=== PATIENT | female | born 1945 | race Caucasian/White ===

== ENCOUNTER → 2017-01-31 | Outpatient (CLI) | payer OTHER ==
[~2017-01-31] MED LIST: NAPR250T2 PO; TRAM-10 PO; VALA500T60 PO
[2017-01-31 12:54] LABS: BLOOD UREA NITROGEN 13 mg/dl (7-18); BUN/CREATININE RATIO 12.9 (10-20); CALCIUM 9.5 mg/dl (8.5-10.1); CARBON DIOXIDE 26 mmol/L (21-32); CHLORIDE 106 mmol/L (98-107); CHOLESTEROL 259 mg/dl (0-200); GLUCOSE 100 mg/dl (70-99); POTASSIUM 4.1 mmol/L (3.5-5.1); SODIUM 141 mmol/L (136-145)
[2017-01-31 12:58] LABS: CHOLESTEROL/HDL RATIO 6.6; HDL CHOLESTEROL 39 mg/dl; LDL CHOLESTEROL CALCULATED 170 mg/dl; TRIGLYCERIDES 252 mg/dl (0-150); VERY LOW DENSITY LIPOPROT CALC 50 mg/dl
== END | disposition home or self-care (01) ==
LOC: C.LAB1850 09:35
PROVIDERS: ATTEND Internal Medicine
DX: E78.5 Hyperlipidemia, unspecified (principal); R73.9 Hyperglycemia, unspecified

== ENCOUNTER → 2017-05-16 | Outpatient (CLI) | payer OTHER ==
[~2017-05-16] MED LIST changes: +NAPR1TAB48 PO; -NAPR250T2 PO
--- NOTE | 2017-05-16 15:57 | DIAGNOSTIC IMAGING REPORT ---
ULTRASOUND OF THE APPENDIX CLINICAL HISTORY: Left lower quadrant abdominal pain. COMPARISON STUDY: No priors. FINDINGS: Real-time, grayscale, and color flow sonography of the right lower quadrant was performed to assess for acute appendicitis. The appendix was not discretely visualized. No inflammatory changes or free fluid are seen in the right lower quadrant. No lymphadenopathy was seen. IMPRESSION: Nonvisualization of the appendix. Note that this does not exclude acute appendicitis. Electronically signed by: Markus Campbell M.D. 05/16/2017 3:56 PM Dictated Date/Time: 05/16/2017 3:55 PM
== END | disposition home or self-care (01) ==
LOC: C.ULTR 15:28
PROVIDERS: ATTEND Physician Assistant
DX: R10.813 Right lower quadrant abdominal tenderness (principal)

== ENCOUNTER → 2017-08-18 | Outpatient (CLI) | payer OTHER | END | disposition home or self-care (01) | LOC: C.MAMM 14:31 | PROVIDERS: ATTEND Internal Medicine | DX: M85.80 Other specified disorders of bone density and structure, unspecified site (principal); M18.9 Osteoarthritis of first carpometacarpal joint, unspecified; Z78.0 Asymptomatic menopausal state ==

== ENCOUNTER 2023-02-21 09:24 | Observation (INO) ==
--- NOTE | 2023-01-28 10:57 | PAT Medication Instructions ---
Medication Instructions Date of Service January 28, 2023 Home Medications Medication Instructions Recorded valacyclovir 500 mg tablet 500 mg PO QAM #90 tabs 08/26/22 cholecalciferol (vitamin D3) 1,250 50,000 unit PO .qweekly #14 tabs 12/18/22 mcg (50,000 unit) tablet rimegepant 75 mg disintegrating 75 mg PO ONCE PRN migraine 12/18/22 tablet (Nurtec ODT) headache #8 tabs topiramate 25 mg tablet (Topamax) 25 mg PO DAILY #30 tabs 12/18/22 melatonin 10 mg capsule 10 mg PO HS PRN diazepam 5 mg tablet 5 mg PO BID PRN valacyclovir 500 mg tablet 500 mg PO QAM lamotrigine 25 mg tablet (Lamictal) 100 mg PO QAM [id number] [Macular Health Formula] 1 tab PO QAM diclofenac sodium 1 % topical gel 2 g topical UD PRN meloxicam 15 mg tablet 15 mg PO QAM rosuvastatin 5 mg tablet (Crestor) 5 mg PO QAM sertraline 50 mg tablet (Zoloft) 50 mg PO QAM acetaminophen 325 mg capsule (Tylenol) 325 mg PO QID PRN cholecalciferol (vitamin D3) 1,250 mcg (50,000 unit) tablet 50,000 unit PO .qweekly rimegepant 75 mg disintegrating tablet (Nurtec ODT) 75 mg PO ONCE PRN topiramate 25 mg tablet (Topamax) 25 mg PO DAILY Continue as directed topiramate 25 mg tablet (Topamax) 25 mg PO DAILY rimegepant 75 mg disintegrating tablet (Nurtec ODT) 75 mg PO ONCE PRN(if needed) ASK your surgeon for instructions diclofenac sodium 1 % topical gel 2 g topical UD PRN meloxicam 15 mg tablet 15 mg PO QAM STOP taking 2 weeks before surgery (or as soon as possible if surgery is within 2 weeks) [id number] [Macular Health Formula] 1 tab PO QAM DO NOT take the morning of surgery cholecalciferol (vitamin D3) 1,250 mcg (50,000 unit) tablet 50,000 unit PO .qweekly Take morning of surgery With a small sip of water, OTHERWISE NOTHING TO EAT OR DRINK AFTER MIDNIGHT: diazepam 5 mg tablet 5 mg PO BID PRN(if needed) valacyclovir 500 mg tablet 500 mg PO QAM lamotrigine 25 mg tablet (Lamictal) 100 mg PO QAM rosuvastatin 5 mg tablet (Crestor) 5 mg PO QAM sertraline 50 mg tablet (Zoloft) 50 mg PO QAM acetaminophen 325 mg capsule (Tylenol) 325 mg PO QID PRN(if needed) Take evening before surgery melatonin 10 mg capsule 10 mg PO HS PRN(if needed) diazepam 5 mg tablet 5 mg PO BID PRN(if needed) acetaminophen 325 mg capsule (Tylenol) 325 mg PO QID PRN(if needed) Other Notes If you have any questions please call us at [phone] or [phone] or [phone] or [phone]
--- NOTE | 2023-02-04 11:34 | Anesthesiology Consultation ---
Date of Service February 04, 2023 Assessment & Plan (1) Encounter for pre-operative examination: - COVID screening: Per assessment on 02/04: No known COVID-19 positive contacts or current COVID-19 related symptoms. No recent Covid positive test result. - Outpatient joint assessment: Pt currently scheduled for inpatient pathway. If surgeon requests review for outpatient joint pathway, patient is not recommended candidate for outpatient joint program from anesthesia standpoint. - Cardiology visit (09/30/22): "Mild sinus tachycardia documented on electrocardiograms over the past few years. The patient states that she is in chronic pain from her headache. She also has chronic right shoulder and bilateral knee pain. She has anxiety. All of these would contribute to an increase in her sinus rate. She appears euvolemic on exam. Normal oral intake. No symptoms of GI fluid losses. No bleeding complaints. Recent renal functions and CBC normal. She is afebrile. Thyroid functions are normal. She has normal left ventricular systolic function on echo. Thus, suspect that her sinus tachycardia is a result of her chronic pain as well as anxiety. Do not suspect a primary cardiac etiology to her tachycardia. She has no anginal or anginal equivalent type symptoms. No signs or symptoms of heart failure.. Markedly elevated direct LDL on most recent testing. She has since been started on low-dose rosuvastatin.. Mitral regurgitation. Most recent can not echo showed only mild mitral regurgitation. She has normal LV size and systolic function. No signs or symptoms referable to valvular heart disease. Plan and recommendation : 1. Optimal pain control . 2. No specific treatment for her sinus tachycardia. She did not tolerate low-dose beta-donnie therapy. Stay well hydrated. Avoid excessive caffeine intake. 3. No further cardiac testing at this time. 4. Echocardiogram every few years. This is in light of her valvular regurgitation. 5. If LDL remains elevated on low-dose resume his statin increased dose as tolerated. Would aim for an LDL level of 70 or less. 6. As needed cardiology follow-up. 7. Continue follow-up in primary care clinic." - S/P Colonoscopy (10/22/22): [facility] at [facility] - Neurology visit (12/18/22): "77-year-old female with a remote history of what sounds like significant TBI complicated by skull fracture and subdural hematoma, did not require specific neurosurgical treatment, however. More recent, minor concussion noted. Has been dealing with what sounds like significant postconcussive symptomatology, primarily headaches.She gets approximately 6 migraine like headaches per month. She gets sensitive to light and noise. Headaches are stabbing, frontal to posterior, around head, worse with stress, worse with activity, stairs, gets some nausea.. Current treatment: Abortive : taking Valium to fall asleep when she gets headache, prior was taking Percocet..Can not take triptans sec to imaging evidence of stoke on recent MRI.. Preventive: on Lamictal. Can not take B-Blockers sec to occasional low BP..Brain MRI 05/17/22: reveals chronic cerebrovascular disease, and perhaps a chronic lacunar infarct within the right cerebral hemisphere, subcortical region." - Hx of neuraxial complication: Per patient, had "convulsions" with neuraxial anesthesia used prior to c/s in the 1970s. Does not believe term "seizures" was used. She does not have further details regarding this. She states that they did use some form of neuraxial anesthesia with her hysterectomy in the without issue. Discussed SAB vs GA. Advised that ultimate anesthetic type to be determined after anesthesiologist/patient/surgeon discussion DOS. Chart Review Chart Review: Acceptable Risk for Surgery and Patient seen in Pre Admission Testing Teaching & Discussion Pre-Anesthesia Teaching/Discussion Notes: Instructed NPO after midnight before surgery,except medications with 15 cc of water. Medication instructions provided according to the PAT guidelines. History Surgery Operation Date: 03/14/23 08:10 Proposed Procedures p Right Total Knee Arthroplasty - James Zee, Height/Weight Height: 5 ft 3 in Weight: 70.6 kg Allergies Allergy/AdvReac Type Severity Reaction Status Date / Time poison rosenda extract Allergy Unknown Rash Verified 01/28/23 10:26 poison oak extract Allergy Unknown Rash Verified 01/28/23 10:26 metoprolol AdvReac Unknown Depression, Verified 01/29/23 09:55 dizziness, nausea JEWELRY AdvReac Unknown Rash Uncoded 01/29/23 09:55 (wrist watch), unknown type of metal Medications Home Medications Medication Instructions Recorded Confirmed Last Taken melatonin 10 mg capsule 10 mg PO HS PRN Sleep 05/22/21 01/28/23 10/21/22 diazepam 5 mg tablet 5 mg PO BID PRN HEADACHES 02/20/22 01/28/23 10/21/22 valacyclovir 500 mg tablet 500 mg PO QAM #90 tabs 08/26/22 01/28/23 10/21/22 lamotrigine 25 mg tablet (Lamictal) 100 mg PO QAM 09/30/22 01/28/23 10/21/22 [id number] 1 tab PO QAM 09/30/22 01/28/23 10/21/22 [Macular Health Formula] diclofenac sodium 1 % topical gel 2 g topical UD PRN Pain 10/16/22 01/28/23 Unknown meloxicam 15 mg tablet 15 mg PO QAM 10/16/22 01/28/23 10/21/22 rosuvastatin 5 mg tablet (Crestor) 5 mg PO QAM 10/16/22 01/28/23 10/21/22 sertraline 50 mg tablet (Zoloft) 50 mg PO QAM 10/16/22 01/28/23 10/21/22 acetaminophen 325 mg capsule 325 mg PO QID PRN Pain 12/18/22 01/28/23 Unknown (Tylenol) cholecalciferol (vitamin D3) 1,250 50,000 unit PO .qweekly #14 tabs 12/18/22 01/28/23 Unknown mcg (50,000 unit) tablet rimegepant 75 mg disintegrating 75 mg PO ONCE PRN migraine 12/18/22 01/28/23 Unknown tablet (Nurtec ODT) headache #8 tabs topiramate 25 mg tablet (Topamax) 25 mg PO DAILY #30 tabs 12/18/22 01/28/23 Unknown Past Medical History Medical History Anxiety Brain atrophy Chronic right-sided headache CMC arthritis, thumb, degenerative Depression Diverticulosis History of hemorrhoids History of hepatitis A History of herpes zoster virus History of osteopenia History of rib fracture History of skin cancer History of subdural hematoma Hyperlipidemia Insomnia Old cerebrovascular accident (CVA) without late effect Osteoarthritis Sensorineural hearing loss (SNHL) of both ears Sleep apnea Sleep disturbance TBI (traumatic brain injury) Exercise / Class Metabolic Activity III < 4 Walking/Shop/Light housework (one FS (no CP, occasional SOB)) Past Family History Family History Father Family history of diabetes mellitus Congestive heart failure Myocardial infarction Colonic polyp Brother Prostate cancer Mother Pseudoxanthoma elasticum Family/Other Polyp of large intestine Other No family history of adverse response to anesthesia Denies family history of Ovarian cancer Breast cancer Colorectal cancer Past Surgical History Surgical History H/O dilation and curettage H/O oophorectomy H/O sigmoidoscopy History of carpal tunnel repair History of cataract surgery History of colonoscopy History of hysterectomy History of Mohs micrographic surgery for skin cancer History of tooth extraction S/P section Past Anesthesia History No Family Hx of Anesthesia Complications and Other Hx of neuraxial complication: Per patient, had "convulsions" with neuraxial anesthesia used prior to c/s in the 1970s. Does not believe term "seizures" was used. She does not have further details regarding this. She states that they did use some form of neuraxial anesthesia with her hysterectomy in the without issue. Discussed SAB vs GA. Advised that ultimate anesthetic type to be determined after anesthesiologist/patient/surgeon discussion DOS. History of PONV No Hx of PONV and No Hx of Motion Sickness Social History Smoking Status: Former smoker tobacco type: cigarettes Do You Dip or Chew Tobacco: No Smoking End Date: Quit 1973 Hx Alcohol Use: Yes (Hx heavy/daily ETOH use for years/stopped 2018, current rare use) Hx Substance Use: Yes (HX MARIJUANA) substance use type: does not use Review of Systems Patient denies chest pain, shortness of breath, dyspnea on exertion, fever, chills, cough, wheezing, palpitations. Physical Exam Vital Signs VITALS BP 143/80 P 98 TEMP 98.3 SP02 94%RA RESP 18 PHYSICAL Full cervical extension range of motion. Full TMJ range of motion. TMD 3.5 finger breaths Mallampati Score 3 Dentition: missing molar, + crowns Lungs: clear throughout to auscultation Cardiac: regular rate and rhythm, no murmurs noted Spine: normal Carotid arteries: negative bruit Extremities: no LE edema Lab Results Anesthesia Preop Results Results Anesthesia Widget: WBC 6.85 K/ul (4.8-10.8) 02/04/23 Hgb 13.3 g/dl (12.0-16.0) 02/04/23 Hct 40.0 % (37.0-47.0) 02/04/23 Plt 240 K/uL (130-400) 02/04/23 Na 140 mmol/L (136-145) 02/04/23 K 4.4 mmol/L (3.5-5.1) 02/04/23 Cl 106 mmol/L (98-107) 02/04/23 CO2 27 mmol/L (21-32) 02/04/23 BUN 18 mg/dl (6-23) 02/04/23 Creat 1.02 mg/dl (0.6-1.2) 02/04/23 Glucose Level 100 mg/dl (70-99(Fasting)) H 02/04/23 PT 10.3 Seconds (9.0-12.0) 02/04/23 PTT 25.0 Seconds (21.0-31.0) 02/04/23 INR 0.9 (0.9-1.1) 02/04/23 Blood Type B Positive 02/04/23 Antibody Screen NEGATIVE 02/04/23 Testing Electrocardiogram Date: 02/04/23 NSR at 96bpm. LATANYA. Chest X-Ray Date: 02/04/23 FINDINGS: PA and lateral chest radiographs are obtained. No prior studies are available for comparison at the time of dictation. The cardiomediastinal silhouette is unremarkable. There is mild bibasilar scarring/atelectasis. Nonspecific interstitial thickening is likely chronic. No airspace consolidation or pleural effusion is identified. There is no pneumothorax. The skeletal structures are osteopenic. There are chronic/healed left-sided rib fractures. IMPRESSION: No active disease in the chest. Echocardiogram Date: 09/06/21 EF 65-70%. No RWMA. Mild cLVH. Grade I DD. Trace to mild MR.
[~2023-02-21 09:24] MED LIST changes: +ACETAMINOPHEN 500 MG TAB PO SCH; +FAMOTIDINE 20 MG TAB PO SCH; +GABAPENTIN 300 MG CAP PO SCH; +LR 500ML BOLUS, THEN 15ML/HR IV SCH; +LR 60ML/HR IV SCH; -NAPR1TAB48 PO; +ORTHO JOINT MIX INFIL SCH; +ROPIVACAINE 0.5% 5 MG/ML 30 ML VIAL ONE; -TRAM-10 PO; +TRANEXAMIC ACID 1,000 MG **IV Intra-op IV SCH; +TRANEXAMIC ACID 1,000 MG **IV Pre-op IV SCH; -VALA500T60 PO; +ceFAZolin 2000MG 2,000 MG/15 ML SYR IV SCH; +dexAMETHasone 4 MG TAB PO SCH
[2023-02-21] MEDS ORDERED: ONDANSETRON INJ 2 MG/ML 2 ML VIAL ONE (09:54)
[2023-02-21] MEDS ORDERED: DEXAMETHASONE SOD INJ 4 MG/ML VIAL ONE (09:54)
[2023-02-21] MEDS ORDERED: PROPOFOL IV EMULSION 10 MG/ML 20 ML VIAL IV ONE (09:54)
[2023-02-21] MEDS ORDERED: fentaNYL citrate PF 100 MCG/2 ML VIAL ONE (09:55)
[2023-02-21] MEDS ORDERED: MIDAZOLAM HCL 1 MG/ML 2ML VIAL ONE (09:55)
--- NOTE | 2023-02-21 10:14 | History & Physical Bridge Note ---
Date of Service February 21, 2023 History & Physical Bridge Note I have examined the patient, reviewed the History & Physical and in the interval since the performance of the History & Physical I have noted the following changes of clinical significance: no changes noted
[2023-02-21] MEDS ORDERED: ORTHO JOINT ANESTHETIC ONE (10:45)
[2023-02-21] MEDS ORDERED: HYDROmorphone INJ 1 MG/ML SYRINGE IV PRN (11:07)
[2023-02-21] MEDS ORDERED: ONDANSETRON INJ 2 MG/ML 2 ML VIAL IV PRN ×2 (11:07→14:32)
[2023-02-21] MEDS ORDERED: ePHEDrine sulfate 50 MG/ML AMP IV PRN (11:07)
[2023-02-21] MEDS ORDERED: ATROPINE SULFATE 0.1 MG/ML 10ML SYR IV PRN (11:07)
[2023-02-21] MEDS ORDERED: KETAMINE 50 MG/5 ML SYRINGE ONE (11:35)
--- NOTE | 2023-02-21 12:39 | Operative Report ---
PG Post Operative Report Pre & Post Diagnosis Operation Date: 02/21/23 11:00 Pre-Op Diagnosis: Degenerative Joint Disease Right Knee Post-Op Diagnosis: Degenerative Joint Disease Right Knee I identified the patient and participated in the time-out.: Yes Procedure Operation Date: 02/21/23 11:00 Actual Procedures p Right Total Knee Arthroplasty, Cemented(Right) - James Zee DO Surgeon James Zee DO Pen Or Pencil Assembly Machine Operator James Feliciano PA-C Estimated Blood Loss 30 Findings Consistent with Post-Op Diagnosis Specimens Right femoral tibial bone Description of Procedure Implants used: I used a Lydia Persona total knee arthroplasty system with a size 7 standard femur, D tibia, 31 oval patella, and a size 14 medial congruent polyethylene bearing. All components were cemented in place with Biomet cement. Haydee arrived [facility] for the above procedure. She was seen in the preoperative holding area and the operative extremity was identified and signed. She was given a preoperative antibiotic, TXA, a spinal anesthetic and an adductor nerve block. She was taken back to the operating room and laid on the table in supine position. She was given basic sedation. The operative knee was then prepped and draped in sterile fashion. A timeout was done, and the patient and the operative extremity was properly identified. A midline incision was made directly over the patella. Dissection was taken down to the extensor mechanism. A midvastus arthrotomy was used. The medial retinaculum was released and the fat pad was mostly excised. The knee was flexed and the ACL, PCL, and meniscus were removed. A drill was sent down the center of the femoral canal followed by an intramedullary jahaira. Off that jahaira a distal femoral cutting block was placed. 9 mm was resected off the distal femur at 5 of valgus. A posterior referencing AP sizing guide was then placed on the distal femur. The femur measured to be a size 7. 2 drill holes were placed in 3 of external rotation. A 4-in-1 cutting block was then impacted into place. Anterior, posterior, and chamfer cuts were then made. The proximal tibia was then exposed. An external tibial alignment guide was placed. A tibial cut guide was then anchored in place and the proximal tibia was then resected. The posterior aspect of the knee was then opened up and any additional meniscus fragments and osteophytes were removed. The tibia measured to be a size D. The tibial plate was then placed in the appropriate rotation and the tibia was drilled and punched. Trial components were then placed. I used a size 14 medial congruent polyethylene insert. The knee was brought through a full range of motion and felt to be stable. The peg holes for the femoral component were then drilled. The patella was then everted and 9 mm was resected off the posterior aspect of the patella. The patella measured to be a size 31 oval. 3 peg holes were then drilled. A trial patella was placed. The knee was once again brought through a full range of motion and felt to be stable. Trial components were then removed. The surrounding soft tissues were injected with 100 cc of an orthopedic pain control cocktail. All components were then cemented into place with Biomet cement. The final polyethylene insert was then snapped into place. Once cement was dry the tourniquet was deflated. Hemostasis was obtained. Surgery for Betadine lavage was used throughout the case. The joint was then irrigated with normal saline solution. The midvastus arthrotomy was then closed with #1 Vicryl suture. The skin was closed with 2-0 Vicryl, 3-0V lock suture, and casandra. A soft compressive dressing was placed. She was then transferred to a hospital bed and taken to the postanesthesia care unit in stable condition. She tolerated the procedure well. James Feliciano PA-C, was present for the entire procedure. He was critical for patient positioning, prepping, draping, retraction exposure, wound closure and application of sterile dressing. I attest to the content of the Intraoperative Record and any orders documented therein. Any exceptions are noted below.
--- NOTE | 2023-02-21 13:16 | Anesthesiology Progress Note ---
Date of Service February 21, 2023 Anesthesia Post Procedure Vital Signs Vital Signs: Temp Pulse Resp BP Pulse Ox O2 Del Method O2 Flow Rate 02/21/23 13:05 98 H 19 132/78 97 Nasal Cannula 2 02/21/23 12:55 36.3 C L 102 H 15 129/74 92 Nasal Cannula 2 02/21/23 09:59 36.6 C 86 18 142/82 H 96 Room Air Pain Intensity Right Knee: Pain Intensity: 6 Transfer of Care Handoff Completed per policy Notes Mental Status: alert / awake / arousable Patient Amnestic to Procedure: Yes Nausea / Vomiting: adequately controlled Pain: adequately controlled Airway Patency, RR, SpO2: stable & adequate BP & HR: stable & adequate Hydration State: stable & adequate Neuraxial Anesthesia: was administered and sensory block is resolving Anesthetic Complications: no major complications apparent
--- NOTE | 2023-02-21 13:42 | XRay Report ---
XR knee RT 1 or 2V routine HISTORY: 77 years-old Female Surgical Post Op right knee arthroplasty COMPARISON: 11/27/2022 TECHNIQUE: 2 views of the right knee FINDINGS: Total joint arthroplasty with patellar resurfacing. Anterior midline skin casandra with expected posto perative soft tissue swelling and deep tissue air. No acute fracture or malalignment. IMPRESSION: Total joint arthroplasty with expected postoperative changes. ACT 112: Negative or not required by law. The above report was generated using voice recognition software. It may contain grammatical, syntax o r spelling errors. Electronically signed by: Nate Mackenzie M.D. 02/21/2023 1:41 PM
[2023-02-21] MEDS ORDERED: METOCLOPRAMIDE HCL INJ 5 MG/ML 2 ML VIAL IV PRN (14:32)
[2023-02-21] MEDS ORDERED: SODIUM CHLORIDE 0.9% 1000ML 1,000 ML IV SCH (14:32)
[2023-02-21] MEDS ORDERED: oxyCODONE HCL IR 5 MG TAB (IMMEDIATE RELEASE) PO PRN (14:32)
[2023-02-21] MEDS ORDERED: bisacodyL 10 MG SUPP PR PRN (14:32)
[2023-02-21] MEDS ORDERED: HYDROmorphone INJ 0.5 MG/0.5 ML SYR IV PRN (14:32)
[2023-02-21] MEDS ORDERED: NALOXONE HCL 0.4 MG/1 ML VIAL/CARP IV PRN (14:32)
[2023-02-21] MEDS ORDERED: MAGNESIUM HYDROXIDE SUSP 30 ML UDC PO PRN (14:32)
[2023-02-21] MEDS ORDERED: MELATONIN 3 MG TAB PO PRN (14:38)
[2023-02-21] MEDS: KETOROLAC TROMETHAMINE 15 MG/ML VIAL IV SCH ×2 (15:45→21:38)
[2023-02-21] MEDS: ACETAMINOPHEN 500 MG TAB PO SCH ×2 (15:45→21:37)
[2023-02-21] MEDS: ceFAZolin 2000MG 2,000 MG/15 ML SYR IV SCH (18:03)
[2023-02-21] MEDS: DOCUSATE SODIUM 100 MG CAP PO SCH (19:56)
[2023-02-21] MEDS: ASPIRIN 81 MG ECTAB PO SCH (19:56)
[2023-02-21] MEDS ORDERED: SENNA 8.6 MG TAB PO SCH (21:00)
[2023-02-22] MEDS: KETOROLAC TROMETHAMINE 15 MG/ML VIAL IV SCH ×2 (03:07→08:15)
[2023-02-22] MEDS: ceFAZolin 2000MG 2,000 MG/15 ML SYR IV SCH (03:07)
[2023-02-22] MEDS: ACETAMINOPHEN 500 MG TAB PO SCH (05:10)
--- NOTE | 2023-02-22 06:58 | Orthopedic Progress Note ---
Date of Service February 22, 2023 Assessment & Plan (1) Status post right knee replacement: Overall he is doing very well. She is not having much pain in the right knee. He will be seen by physical therapy today for ambulation and range of motion exercises. The nursing staff can change the dressing after physical therapy today. She is on aspirin for DVT prophylaxis. She can be discharged home later today. She will follow-up with orthopedics in 2 weeks. Violette Hubbard was seen and examined at bedside this morning. Overall she is doing very well. She is not having much pain in the right knee. She has been up and ambulating to the bathroom. She has no complaints.. Review of Systems All systems reviewed & are unremarkable except as noted in HPI & below. Physical Exam On physical examination of the right knee, the dressing is clean and dry. Her leg is out full extension. She has active dorsiflexion plantarflexion of her right ankle.. Results & Data Results & Data Laboratory Results . Diagnostic Findings Postoperative x-rays of the right knee show the prosthesis to be in anatomic alignment without any evidence of fracture, desiccation, or loosening. PG Care Time/CCT Total # of Minutes Spent Total Time Spent with Patient: Total time spent is greater than 50% in coordination of care (as documented) at patient's floor/unit and/or counseling patient: Coding Level of Care Code 65437 Post Operative Follow-Up Diagnoses Status post right knee replacement Z96.651
--- NOTE | 2023-02-22 06:59 | Discharge Summary ---
Date of Service February 22, 2023 Principal Diagnosis Same as "Discharge Diagnosis" noted below under Discharge Instructions. Discharge Exam On physical examination of the right knee, the dressing is clean and dry. Her leg is out full extension. She has active dorsiflexion plantarflexion of her right ankle.. Discharge Data Procedures Performed Operation Date: 02/21/23 11:00 Actual Procedures p Right Total Knee Arthroplasty, Cemented(Right) - James Zee DO Ordered Studies 02/21/23 05:00 US - OR guided needle placemen Routine Hospital Course (1) Status post right knee replacement: On February 21, 2023 Haydee arrived at [facility] and underwent a right knee replaced without complication. She had a spinal anesthetic. Postoperatively she was started on aspirin for DVT prophylaxis and transferred t o the general orthopedic floors. Her hospital course was uneventful. On postop day #1, her vital signs were stable and her pain was well controlled. She was able to participate well with physical therapy doing ambulation and range of motion exercises. She was then discharged home. She will follow-up with orthopedics in 2 weeks. PG Care Time/CCT Total # of Minutes Spent Total Time Spent with Patient: Total time spent is greater than 50% in coordination of care (as documented) at patient's floor/unit and/or counseling patient: Discharge Plan Discharge Items Patient Disposition: Home - Home Health Services Reason For Visit: DJD Right Knee Discharge Diagnosis: Right knee replacement Activity: Per Instructions section Non-emergency contact: Surgeon Call non-emergency contact if: your wound has increased redness and your wound has increased drainage Follow-up/Referrals: Ned Newman MD [Primary Care Provider] - Diet: Regular Addtl Attending Provider Instructions: Activity and Therapy Recommendations: * If you are using [facility] then therapy will be provided at your home until they feel you have accomplished all of your goals. * If you are using [facility] then Physical Therapy will be provided until they feel you are ready to start Outpatient Physical Therapy. * If you are not using home therapy then Outpatient Physical Therapy should start about 3-5 days from your day of surgery. Therapy will last about 6-10 weeks * It is important not to put a pillow under your knee when you are relaxing or sleeping. It is just as important to make sure you are getting your knee perfectly straight as it is to regain your knee bend. * You were shown a series of exercises in the hospital. Do these exercises three times each day including the exercises you were shown in physical therapy. * Get up and walk several times each day. For the first four weeks, try not to stand or walk for more than one hour at a time. If you do stand or walk for more than one hour, you will not hurt anything, but your leg will likely swell. * As you feel comfortable, you may change from the walker or crutches to a cane and then to independent walking. Medications: * Narcotic You will likely be sent home from the hospital with a prescription for the narcotic pain medication that worked best throughout your stay. * Aspirin Most patients will be required to take Aspirin 81mg twice a day for 6 weeks after surgery. This is obtained [id number] and a prescription is not necessary. * Other medications may be prescribed for specific circumstances. If you have any questions, please call the office at . * Resume previous home medications unless otherwise instructed TEDs/Elastic Stockings: The white elastic stockings help limit swelling and prevent blood clots from forming in your legs.~ The more you wear them, the more they work. Wear them for six weeks. Dressing Care: The dressing can be changed after physical therapy on postop day #1. Daily dry dressing changes for a few days, especially if the incision is still draining some. If the incision is not draining then you may leave the casandra open to air. If there is a little bit of drainage or if the casandra are getting stuck on your clothing then cover the incision with a dry dressing. The casandra will be removed at your 2 week follow-up appointment. Showering: You may shower 5 days from the day of surgery as long as the incision is no longer draining. You may shower with the casandra exposed. Let soapy water run over the casandra and pat them dry. Do not scrub or soak the incision. Things To Watch For: * Drainage from the incision site that occurs more than one week after your surgery. * Increased redness at the incision site. * Fever above 102 degrees Fahrenheit. * Unusual chest pain or shortness of breath. * Call [facility] at with any of the above problems Follow-Up Visit: Follow-up with Dr. Zee's PA (James Feliciano) 2-3 weeks after your day of surgery. He will remove your casandra and answer any questions. If you have any additional questions or concerns, Dr Zee is usually in the office at the same time and will be available An appointment was probably scheduled when you signed-up for surgery in the office. If you have any questions call Office Instructions: More detailed instructions as well as Frequently Asked Questions were provided in a folder by our office when you signed-up for surgery. Please review these instructions when you get home. If you have any further questions or concerns, please feel free to call the office at [phone] Pending Studies at Discharge: No Stand-Alone Forms: My [facility] Medications and DC Order Prescriptions: New oxycodone 5 mg Tablet 5 mg PO Q4H PRN (Reason: pain) Qty: 30 0RF aspirin 81 mg Tablet,Delayed Release (Dr/Ec) 81 mg PO BID 42 Days Qty: 0 0RF Continued rosuvastatin [Crestor] 5 mg tablet 5 mg PO QAM Qty: 90 1RF melatonin 10 mg capsule 10 mg PO HS PRN (Reason: Sleep) acetaminophen [Tylenol] 325 mg capsule 325 mg PO QID PRN (Reason: Pain) topiramate [Topamax] 25 mg tablet 25 mg PO DAILY Qty: 30 2RF Nurtec ODT 75 mg tablet,disintegrating 75 mg PO ONCE PRN (Reason: migraine headache) Qty: 8 5RF cholecalciferol (vitamin D3) 1,250 mcg (50,000 unit) tablet 50,000 unit PO .qweekly Qty: 14 1RF diazepam 5 mg tablet 5 mg PO BID PRN (Reason: HEADACHES) Rx Instructions: GETTING THIS FROM [facility] [id number] [Macular Health Formula] 1 tab PO QAM lamotrigine [Lamictal] 25 mg tablet 100 mg PO QAM valacyclovir [Valtrex] 500 mg tablet 500 mg PO QAM sertraline [Zoloft] 50 mg Tablet 50 mg PO QAM meloxicam 15 mg tablet 15 mg PO QAM diclofenac sodium 1 % gel 2 g topical UD PRN (Reason: Pain) Patient Comments: NEEDED FOR PAIN Admission Data Admit Date/Time: 02/21/23 12:55 Attending Provider: James Zee Admit Provider: James Zee Primary Care Provider: Ned Newman V.
[2023-02-22] MEDS ORDERED: dexAMETHasone 4 MG TAB PO SCH (08:00)
[2023-02-22] MEDS: ASPIRIN 81 MG ECTAB PO SCH (08:13)
[2023-02-22] MEDS: DOCUSATE SODIUM 100 MG CAP PO SCH (08:13)
[2023-02-22] MEDS ORDERED: ROSUVASTATIN CALCIUM 5 MG TAB PO SCH (09:00)
[2023-02-22] MEDS ORDERED: TOPIRAMATE 25 MG TAB PO SCH (09:00)
[2023-02-22] MEDS ORDERED: lamoTRIgine 100 MG TAB PO SCH (09:00)
[2023-02-22] MEDS ORDERED: valACYclovir HCL 500 MG TABLET PO SCH (09:00)
[2023-02-22] MEDS ORDERED: SERTRALINE HCL 50 MG TABLET PO SCH (09:00)
[2023-02-22] MEDS ORDERED: MULTIVITAMIN TAB PO SCH (09:00)
[2023-02-24] MEDS ORDERED: MELOXICAM 7.5 MG TAB PO SCH (09:00)
== END 2023-02-22 13:15 | disposition home or self-care (01) ==
LOC: 3E 09:24 → ASU 09:24

== ENCOUNTER 2023-08-29 07:33 | Observation (INO) ==
--- NOTE | 2023-07-14 13:55 | PAT Medication Instructions ---
Medication Instructions Date of Service July 14, 2023 Home Medications Medication Instructions Recorded cholecalciferol (vitamin D3) 1,250 50,000 unit PO .qweekly #14 tabs 12/18/22 mcg (50,000 unit) tablet rosuvastatin 5 mg tablet (Crestor) 5 mg PO QAM #90 tabs 02/17/23 diclofenac sodium 1 % topical gel 2 g topical UD PRN Pain #100 grams 03/04/23 meloxicam 15 mg tablet 15 mg PO QAM #30 tabs 05/02/23 clindamycin HCl 300 mg capsule 300 mg PO ONCE #2 caps 05/07/23 Medication List: melatonin 10 mg capsule 10 mg PO HS PRN Sleep diazepam 5 mg tablet 5 mg PO BID PRN HEADACHES lamotrigine 25 mg tablet (Lamictal) 100 mg PO QAM [id number] [Macular Health Formula] 1 tab PO QAM sertraline 50 mg tablet (Zoloft) 50 mg PO QAM acetaminophen 325 mg capsule (Tylenol) 325 mg PO QID PRN Pain cholecalciferol (vitamin D3) 1,250 mcg (50,000 unit) tablet 50,000 unit PO .qweekly rosuvastatin 5 mg tablet (Crestor) 5 mg PO QAM valacyclovir 500 mg tablet (Valtrex) 500 mg PO QAM diclofenac sodium 1 % topical gel 2 g topical UD PRN Pain meloxicam 15 mg tablet 15 mg PO QAM clindamycin HCl 300 mg capsule 300 mg PO ONCE MEDICATION INSTRUCTIONS: Continue as directed clindamycin HCl 300 mg capsule 300 mg PO ONCE diclofenac sodium 1 % topical gel 2 g topical UD PRN Pain (do not apply near surgical area after bathing prior to surgery) ASK your surgeon for instructions meloxicam 15 mg tablet 15 mg PO QAM STOP taking 2 weeks before surgery [id number] [Macular Health Formula] 1 tab PO QAM DO NOT take the morning of surgery cholecalciferol (vitamin D3) 1,250 mcg (50,000 unit) tablet 50,000 unit PO .qweekly Take morning of surgery With a small sip of water, OTHERWISE NOTHING TO EAT OR DRINK AFTER MIDNIGHT: lamotrigine 25 mg tablet (Lamictal) 100 mg PO QAM rosuvastatin 5 mg tablet (Crestor) 5 mg PO QAM valacyclovir 500 mg tablet (Valtrex) 500 mg PO QAM sertraline 50 mg tablet (Zoloft) 50 mg PO QAM diazepam 5 mg tablet 5 mg PO BID PRN HEADACHES acetaminophen 325 mg capsule (Tylenol) 325 mg PO QID PRN Pain Take evening before surgery melatonin 10 mg capsule 10 mg PO HS PRN Sleep diazepam 5 mg tablet 5 mg PO BID PRN HEADACHES acetaminophen 325 mg capsule (Tylenol) 325 mg PO QID PRN Pain Other Notes If you have any questions please call us at [phone] or [phone] or [phone] or [phone]
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
[~2023-08-29 07:33] MED LIST changes: -ACETAMINOPHEN 500 MG TAB PO SCH; +BUPIVACAINE 0.5 % 5 MG/1 ML PF 10ML VIAL ONE; -FAMOTIDINE 20 MG TAB PO SCH; -GABAPENTIN 300 MG CAP PO SCH; -LR 500ML BOLUS, THEN 15ML/HR IV SCH; -LR 60ML/HR IV SCH; +MIDAZOLAM HCL 1 MG/ML 2ML VIAL ONE; -ORTHO JOINT MIX INFIL SCH; -TRANEXAMIC ACID 1,000 MG **IV Intra-op IV SCH; -TRANEXAMIC ACID 1,000 MG **IV Pre-op IV SCH; -ceFAZolin 2000MG 2,000 MG/15 ML SYR IV SCH; -dexAMETHasone 4 MG TAB PO SCH; +fentaNYL citrate PF 100 MCG/2 ML VIAL ONE
[2023-08-29] MEDS: ACETAMINOPHEN 500 MG TAB PO SCH (08:08)
[2023-08-29] MEDS: LR 500ML BOLUS, THEN 15ML/HR IV SCH (08:09)
[2023-08-29] MEDS: FAMOTIDINE 20 MG TAB PO SCH (08:09)
[2023-08-29] MEDS: GABAPENTIN 300 MG CAP PO SCH (08:09)
--- NOTE | 2023-08-29 08:09 | History & Physical Bridge Note ---
Date of Service August 29, 2023 History & Physical Bridge Note I have examined the patient, reviewed the History & Physical and in the interval since the performance of the History & Physical I have noted the following changes of clinical significance: no changes noted
[2023-08-29] MEDS: dexAMETHasone**PF** 10 MG/ML VIAL IV SCH (08:10)
[2023-08-29] MEDS ORDERED: fentaNYL citrate PF 100 MCG/2 ML VIAL IV PRN (08:53)
[2023-08-29] MEDS ORDERED: ONDANSETRON INJ 2 MG/ML 2 ML VIAL IV PRN ×2 (08:53→11:29)
[2023-08-29] MEDS ORDERED: ePHEDrine sulfate 50 MG/ML AMP IV PRN (08:53)
[2023-08-29] MEDS ORDERED: ATROPINE SULFATE 0.1 MG/ML 10ML SYR IV PRN (08:53)
[2023-08-29] MEDS: TRANEXAMIC ACID 1,000 MG **IV Pre-op IV SCH (08:57)
[2023-08-29] MEDS: ceFAZolin 2000MG 2,000 MG/15 ML SYR IV SCH ×2 (09:12→16:15)
[2023-08-29] MEDS: LR 60ML/HR IV SCH (09:18)
[2023-08-29] MEDS ORDERED: ONDANSETRON INJ 2 MG/ML 2 ML VIAL ONE (09:22)
[2023-08-29] MEDS ORDERED: PROPOFOL IV EMULSION 10 MG/ML 20 ML VIAL IV ONE (09:22)
[2023-08-29] MEDS: TRANEXAMIC ACID 1,000 MG **IV Intra-op IV SCH (10:22)
--- NOTE | 2023-08-29 10:24 | Operative Report ---
PG Post Operative Report Pre & Post Diagnosis Operation Date: 08/29/23 09:00 Pre-Op Diagnosis: Degenerative Joint Disease Left Knee Post-Op Diagnosis: Degenerative Joint Disease Left Knee I identified the patient and participated in the time-out.: Yes Procedure Operation Date: 08/29/23 09:00 Actual Procedures p Left Total Knee Arthroplasty(Left) - James Zee DO Surgeon James Zee DO Patient Placement Coordinator James Feliciano PA-C Estimated Blood Loss 30 Findings Consistent with Post-Op Diagnosis Specimens Left femoral tibial bone Description of Procedure Implants used: I used a Lydia Persona total knee arthroplasty system with a size 7 standard femur, D tibia, 31 oval patella, and a size 11 medial congruent polyethylene bearing. All components were cemented in place with Biomet cement. Haydee arrived [facility] for the above procedure. She was seen in the preoperative holding area and the operative extremity was identified and signed. She was given a preoperative antibiotic, TXA, a spinal anesthetic and an adductor nerve block. She was taken back to the operating room and laid on the table in supine position. She was given basic sedation. The operative knee was then prepped and draped in sterile fashion. A timeout was done, and the patient and the operative extremity was properly identified. A midline incision was made directly over the patella. Dissection was taken down to the extensor mechanism. A midvastus arthrotomy was used. The medial retinaculum was released and the fat pad was mostly excised. The knee was flexed and the ACL, PCL, and meniscus were removed. A drill was sent down the center of the femoral canal followed by an intramedullary jahaira. Off that jahaira a distal femoral cutting block was placed. 9 mm was resected off the distal femur at 5 of valgus. A posterior referencing AP sizing guide was then placed on the distal femur. The femur measured to be a size 7. 2 drill holes were placed in 3 of external rotation. A 4-in-1 cutting block was then impacted into place. Anterior, posterior, and chamfer cuts were then made. The proximal tibia was then exposed. An external tibial alignment guide was placed. A tibial cut guide was then anchored in place and the proximal tibia was then resected. The posterior aspect of the knee was then opened up and any additional meniscus fragments and osteophytes were removed. The tibia measured to be a size D. The tibial plate was then placed in the appropriate rotation and the tibia was drilled and punched. Trial components were then placed. I used a size 11 medial congruent polyethylene insert. The knee was brought through a full range of motion and felt to be stable. The peg holes for the femoral component were then drilled. The patella was then everted and 9 mm was resected off the posterior aspect of the patella. The patella measured to be a size 31 oval. 3 peg holes were then drilled. A trial patella was placed. The knee was once again brought through a full range of motion and felt to be stable. Trial components were then removed. The surrounding soft tissues were injected with 100 cc of an orthopedic pain control cocktail. All components were then cemented into place with Biomet cement. The final polyethylene insert was then snapped into place. Once cement was dry the tourniquet was deflated. Hemostasis was obtained. A dilute betadyne lavage was then done for 3 minutes. The joint was then irrigated with normal saline solution. The midvastus arthrotomy was then closed with #1 Vicryl suture. The skin was closed with 2-0 Vicryl, 3-0V lock suture, and casandra. A soft compressive dressing was placed. She was then transferred to a hospital bed and taken to the postanesthesia care unit in stable condition. She tolerated the procedure well. James Feliciano PA-C, was present for the entire procedure. He was critical for patient positioning, prepping, draping, retraction exposure, wound closure and application of sterile dressing. I attest to the content of the Intraoperative Record and any orders documented therein. Any exceptions are noted below.
[2023-08-29] MEDS: ROPIV 0.5% 246mg, Ketorolac 30mg, EPINEPHrine 0.5mg in NSS INFIL SCH (10:26)
[2023-08-29] MEDS: ORTHO JOINT ANESTHETIC ONE (10:28)
[2023-08-29] MEDS ORDERED: NALOXONE HCL 0.4 MG/1 ML VIAL/CARP IV PRN (11:29)
[2023-08-29] MEDS ORDERED: HYDROmorphone INJ 0.5 MG/0.5 ML SYR IV PRN (11:29)
[2023-08-29] MEDS ORDERED: METOCLOPRAMIDE HCL INJ 5 MG/ML 2 ML VIAL IV PRN (11:29)
[2023-08-29] MEDS ORDERED: MAGNESIUM HYDROXIDE SUSP 30 ML UDC PO PRN (11:29)
[2023-08-29] MEDS ORDERED: bisacodyL 10 MG SUPP PR PRN (11:29)
[2023-08-29] MEDS ORDERED: MELATONIN 3 MG TAB PO PRN (11:34)
--- NOTE | 2023-08-29 11:46 | XRay Report ---
XR knee LT 1 or 2V routine HISTORY: 78 years-old Female Surgical Post Op left knee arthroplasty COMPARISON: 04/09/2023 TECHNIQUE: 3 views of the left knee FINDINGS: Total joint arthroplasty with patellar resurfacing. Anterior midline skin casandra are noted along wit h expected postoperative soft tissue swelling and deep tissue air. No acute fracture, or dislocation. 6 mm radiodensity projects lateral to the distal femur on the frontal projection, possibly a bone fr agment versus cement material. IMPRESSION: Satisfactory alignment of the total joint arthroplasty. ACT 112: Negative or not required by law. The above report was generated using voice recognition software. It may contain grammatical, syntax o r spelling errors. Electronically signed by: Nate Mackenzie M.D. 08/29/2023 11:44 AM
[2023-08-29] MEDS: SODIUM CHLORIDE 0.9% 1,000 ML IV SCH (11:48)
--- NOTE | 2023-08-29 11:55 | Anesthesiology Progress Note ---
Date of Service August 29, 2023 Anesthesia Post Procedure Vital Signs Vital Signs: Temp Pulse Pulse Resp BP Pulse Ox O2 Del Method 08/29/23 11:40 Room Air 08/29/23 11:32 97.3 F L 97 H 16 137/79 94 Room Air 08/29/23 11:20 97.9 F 98 H 15 125/87 96 Nasal Cannula 08/29/23 11:10 99 H 13 135/81 94 Nasal Cannula 08/29/23 11:00 101 H 24 139/69 96 Nasal Cannula 08/29/23 10:50 95 H 12 136/66 96 Nasal Cannula 08/29/23 10:43 97.0 F L 94 H 17 122/86 94 Nasal Cannula 08/29/23 07:50 97.5 F L 86 20 173/93 H 97 Room Air O2 Flow Rate 08/29/23 11:40 08/29/23 11:32 08/29/23 11:20 2 08/29/23 11:10 2 08/29/23 11:00 2 08/29/23 10:50 2 08/29/23 10:43 2 08/29/23 07:50 Transfer of Care Handoff Completed per policy Notes Mental Status: alert / awake / arousable and participated in evaluation Patient Amnestic to Procedure: Yes Nausea / Vomiting: adequately controlled Pain: adequately controlled Airway Patency, RR, SpO2: stable & adequate BP & HR: stable & adequate Hydration State: stable & adequate Neuraxial Anesthesia: was administered and sensory block is resolving Anesthetic Complications: no major complications apparent and Pt Satisfied with anesthetic care
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
[2023-08-29 15:30] LABS: Hematocrit (blood only) 39.1 % (37.0-47.0); Hemoglobin 12.9 g/dl (12.0-16.0); Mean Corpuscular Hemoglobin 28.4 pg (25.0-34.0); Mean Corpuscular Volume 86.1 fL (80.0-100.0); Mean Platelet Volume 9.4 fL (9.4-12.4); Platelet Count 266 K/uL (130-400); RDW Coefficient of Variation 13.2 % (11.5-14.5); RDW Standard Deviation 41.5 fL (36.4-46.3); Red Blood Count 4.54 M/uL (4.20-5.40); White Blood Count 10.08 K/ul (4.8-10.8)
[2023-08-29 15:41] LABS: Albumin Globulin Ratio 1.8 (0.9-2); Albumin Level 4.4 gm/dl (3.4-5.0); BUN Creatinine Ratio 17.6 (10-20); Bilirubin,Total 0.3 mg/dl (0.2-1.0); Calcium 9.5 mg/dl (8.6-10.3); Creatinine Clr Calc Pharmacy 39.7 ml/min; Est GFR (African American) 57.7 ml/min; Est GFR (Non-African American) 49.8 ml/min; Globulin 2.5 gm/dl (2.5-4.0); Magnesium 1.7 mg/dl (1.7-2.4); Potassium 4.1 mmol/L (3.5-5.1); Total Protein 6.9 gm/dl (6.0-8.3)
[2023-08-29] MEDS: HYDROCODONE/ACETAMOPHEN 5/325MG TAB PO PRN (15:43)
[2023-08-29 15:46] LABS: Troponin I High Sensitivity 2.6 pg/ml (0-14)
[2023-08-29 15:55] LABS: Thyroid Stimulating Hormone 0.497 uIu/ml (0.300-4.500)
[2023-08-29 16:01] LABS: Basophils # (auto) 0.01 K/uL (0.00-0.20); Basophils % (auto) 0.1 %; Immature Granulocytes # (auto) 0.03 K/uL (0.01-0.20); Immature Granulocytes % (auto) 0.3 %; Lymphocytes # (auto) 0.46 K/uL (1.20-3.40); Lymphocytes % (auto) 4.6 %; Monocytes # (auto) 0.03 K/uL (0.11-0.59); Monocytes % (auto) 0.3 %; Neutrophils # (auto) 9.55 K/uL (1.40-6.50); Neutrophils % (auto) 94.7 %
[2023-08-29] MEDS: SODIUM CHLORIDE 0.9% 500 ML IV ONE (16:26)
[2023-08-29] MEDS: VALSARTAN 80 MG TAB PO SCH (16:46)
--- NOTE | 2023-08-29 17:06 | Electrocardiogram Report ---
Test Reason : Blood Pressure : / mmHG Vent. Rate : 116 BPM Atrial Rate : 116 BPM P-R Int : 180 ms QRS Dur : 078 ms QT Int : 316 ms P-R-T Axes : 058 000 078 degrees QTc Int : 439 ms Sinus tachycardia Minimal voltage criteria for LVH, may be normal variant Nonspecific T wave abnormality Abnormal ECG When compared with ECG of 04-FEB-2023 12:01, T wave inversion now evident in Anterior leads Confirmed by Aly Miguel ([id number]) on 08/29/2023 5:06:37 PM Referred By: James Zee Confirmed By:Holden Miguel
[2023-08-29] MEDS: OPTIRAY 320 125ml IV ONE (20:34)
[2023-08-29] MEDS: ASPIRIN 81 MG ECTAB PO SCH (21:02)
[2023-08-29] MEDS: SENNA 8.6 MG TAB PO SCH (21:02)
[2023-08-29] MEDS: DOCUSATE SODIUM 100 MG CAP PO SCH (21:02)
--- NOTE | 2023-08-29 22:06 | CT Scan Report ---
Exam(s): CTA CHEST IV Amt: OPTIRAY 320 117ML EXAM: CT Angiography Chest With Intravenous Contrast CLINICAL HISTORY: Reason for exam: PE. TECHNIQUE: Axial computed tomographic angiography images of the chest with intravenous contrast. CTDI is 23.09 mGy and DLP is 607.08 mGy-cm. Automated exposure control was utilized for the study. A dose lowering technique was utilized adhering to the principles of ALARA. MIP reconstructed images were created and reviewed. COMPARISON: No relevant prior studies available. FINDINGS: Pulmonary arteries: Unremarkable. No acute pulmonary embolism. Aorta: No acute findings. No thoracic aortic aneurysm. Lungs: Unremarkable. No mass. No consolidation. Pleural space: Unremarkable. No significant effusion. No pneumothorax. Heart: Cardiomegaly. No significant pericardial effusion. No evidence of RV dysfunction. Mediastinum: Small hiatal hernia. Bones/joints: No acute fracture. No dislocation. Soft tissues: Unremarkable. Lymph nodes: Unremarkable. No enlarged lymph nodes. IMPRESSION: No acute pulmonary embolism. Electronically signed by: Ty Jane MD 08/29/23 22:04 PM
[2023-08-29] MEDS: diazePAM 5 MG TABLET PO PRN (22:47)
--- NOTE | 2023-08-30 07:39 | Orthopedic Progress Note ---
Date of Service August 30, 2023 Assessment & Plan (1) Status post left knee replacement: Overall she is doing well. She is not having much pain in the left knee. Her blood pressure still running a little bit high but this is baseline for her. Her oxygen saturations are fine on room air. She will be seen by physical therapy today for ambulation and range of motion exercises. She can be discharged home later today. She will follow-up orthopedics in 2 weeks. Violette Hubbard was seen and examined at bedside this morning. Overall she doing very well. She does not have much pain in the left knee. She been up and ambulating to the bathroom. She was dealing with some postoperative hypotension. This is not new for her. Her family physician has been trying to control for years. She was a little bit tachycardic overnight and was sent for a CTA of her chest to rule out pulmonary embolism. This was negative. She says she is breathing fine. Her oxygen saturations are fine. She has no complaints.. Review of Systems All systems reviewed & are unremarkable except as noted in HPI & below. Physical Exam On physical examination of the left knee, the dressing is clean and dry. Her leg is out full extension. She has active dorsiflexion plantarflexion of her left ankle.. Results & Data Results & Data Laboratory Results . Diagnostic Findings Postoperative x-rays of the left knee show the prosthesis to be in anatomic alignment without any evidence of fracture complication, or loosening.. PG Care Time/CCT Total # of Minutes Spent Total Time Spent with Patient: Total time spent is greater than 50% in coordination of care (as documented) at patient's floor/unit and/or counseling patient: Coding Level of Care Code 73585 Post Operative Follow-Up Diagnoses Status post left knee replacement Z96.652
--- NOTE | 2023-08-30 07:41 | Discharge Summary ---
Date of Service August 30, 2023 Admission HPI (Per Admitting) Haydee is a pleasant 78-year-old female who is now about 6 months status post right total knee arthroplasty. She is doing very well with that. Unfortunately, she is struggling with the left knee. She has known osteoarthritis of the left knee. Injections have not been helpful. After failing conservative treatment, she has elected proceed with a left total knee arthroplasty. Admission Exam (Per Admitting) On physical examination of left knee, she has pain of the distal medial femoral condyle. She is a slight varus deformity. She has range of motion from 0 to 120 degrees.. Principal Diagnosis Same as "Discharge Diagnosis" noted below under Discharge Instructions. Discharge Exam On physical examination of the left knee, the dressing is clean and dry. Her leg is out full extension. She has active dorsiflexion plantarflexion of her left ankle.. Discharge Data Consultations 08/29/23 13:48 Consult Hospitalist Routine Procedures Performed Operation Date: 08/29/23 09:00 Actual Procedures p Left Total Knee Arthroplasty(Left) - James Zee DO Ordered Studies 08/29/23 05:00 US - OR guided needle placemen Routine 08/29/23 19:27 CT angio chest PE protocol Stat Hospital Course (1) Status post left knee replacement: On August 29, 2023 Haydee arrived at [facility] and underwent a left knee replaced without complication. She had a spinal anesthetic. Post operatively she was started on aspirin for DVT prophylaxis and transferred to the general orthopedic floors. Her hospital course was uneventful. When she first got to the orthopedic floor she was found to be hypertensive and tachycardic. The hospitalist was consulted. Blood work was ordered which was essentially negative. Hypertension tachycardia is a baseline for her. She has been treated by her primary care physician for this for years. Over the night she became slightly more tachycardic and a CTA of her chest was ordered. The CTA was negative. Her oxygen saturations were normal. On postop day #1 she was feeling well. She was able to participate well with physical therapy doing ambulation and range of motion exercises. She was then discharged home. She will follow-up with orthopedics in 2 weeks. PG Care Time/CCT Total # of Minutes Spent Total Time Spent with Patient: Total time spent is greater than 50% in coordination of care (as documented) at patient's floor/unit and/or counseling patient: Discharge Plan Discharge Items Patient Disposition: Home - Self-Care Reason For Visit: DJD Left Knee Discharge Diagnosis: Left knee replacement Activity: Per Instructions section Non-emergency contact: Surgeon Call non-emergency contact if: your wound has increased redness and your wound has increased drainage Follow-up/Referrals: Ned Newman MD [Primary Care Provider] - 09/05/23 11:00 am (APPOINTMENT WITH [facility]) Diet: Regular Addtl Attending Provider Instructions: Activity and Therapy Recommendations: * If you are using [facility] then therapy will be provided at your home until they feel you have accomplished all of your goals. * If you are using [facility] then Physical Therapy will be provided until they feel you are ready to start Outpatient Physical Therapy. * If you are not using home therapy then Outpatient Physical Therapy should start about 3-5 days from your day of surgery. Therapy will last about 6-10 weeks * It is important not to put a pillow under your knee when you are relaxing or sleeping. It is just as important to make sure you are getting your knee perfectly straight as it is to regain your knee bend. * You were shown a series of exercises in the hospital. Do these exercises three times each day including the exercises you were shown in physical therapy. * Get up and walk several times each day. For the first four weeks, try not to stand or walk for more than one hour at a time. If you do stand or walk for more than one hour, you will not hurt anything, but your leg will likely swell. * As you feel comfortable, you may change from the walker or crutches to a cane and then to independent walking. Medications: * Narcotic You will likely be sent home from the hospital with a prescription for the narcotic pain medication that worked best throughout your stay. * Cefadroxil -take the antibiotic twice a day for 10 days to help prevent infection. * Aspirin Most patients will be required to take Aspirin 81mg twice a day for 6 weeks after surgery. This is obtained [id number] and a prescription is not necessary. * Other medications may be prescribed for specific circumstances. If you have any questions, please call the office at . * Resume previous home medications unless otherwise instructed TEDs/Elastic Stockings: The white elastic stockings help limit swelling and prevent blood clots from forming in your legs.~ The more you wear them, the more they work. Wear them for six weeks. Dressing Care: The dressing can be changed after physical therapy on postop day #1. Daily dry dressing changes for a few days, especially if the incision is still draining some. If the incision is not draining then you may leave the casandra open to air. If there is a little bit of drainage or if the casandra are getting stuck on your clothing then cover the incision with a dry dressing. The casandra will be removed at your 2 week follow-up appointment. Showering: You may shower 5 days from the day of surgery as long as the incision is no longer draining. You may shower with the casandra exposed. Let soapy water run over the casandra and pat them dry. Do not scrub or soak the incision. Things To Watch For: * Drainage from the incision site that occurs more than one week after your surgery. * Increased redness at the incision site. * Fever above 102 degrees Fahrenheit. * Unusual chest pain or shortness of breath. * Call [facility] at with any of the above problems Follow-Up Visit: Follow-up with Dr. Zee's PA (James Feliciano) 2-3 weeks after your day of surgery. He will remove your casandra and answer any questions. If you have any additional questions or concerns, Dr Zee is usually in the office at the same time and will be available An appointment was probably scheduled when you signed-up for surgery in the office. If you have any questions call Office Instructions: More detailed instructions as well as Frequently Asked Questions were provided in a folder by our office when you signed-up for surgery. Please review these instructions when you get home. If you have any further questions or concerns, please feel free to call the office at [phone] Pending Studies at Discharge: No Stand-Alone Forms: [facility], Smoking Cessation Medications and DC Order Prescriptions: New oxycodone 5 mg capsule 5 mg PO Q6H PRN (Reason: pain) Qty: 30 0RF cefadroxil 500 mg capsule 500 mg PO BID 10 Days Qty: 20 0RF aspirin 81 mg Tablet,Delayed Release (Dr/Ec) 81 mg PO BID 42 Days Qty: 0 0RF Continued rosuvastatin [Crestor] 5 mg tablet 5 mg PO QAM Qty: 90 1RF meloxicam 15 mg tablet 15 mg PO QAM Qty: 30 2RF clindamycin HCl 300 mg capsule 300 mg PO ONCE Qty: 2 0RF Rx Instructions: Take two capsules one hour prior to dental procedure cholecalciferol (vitamin D3) 1,250 mcg (50,000 unit) tablet 50,000 unit PO .qweekly Qty: 14 1RF Patient Comments: sundays melatonin 10 mg capsule 10 mg PO HS PRN (Reason: Sleep) acetaminophen [Tylenol] 325 mg capsule 325 mg PO QID PRN (Reason: Pain) diazepam 5 mg tablet 5 mg PO BID PRN (Reason: HEADACHES) Rx Instructions: GETTING THIS FROM [employer] [id number] [Macular Health Formula] 1 tab PO QAM lamotrigine [Lamictal] 25 mg tablet 100 mg PO QAM methylphenidate HCl [Ritalin] 5 mg tablet 5 mg PO DAILY valacyclovir [Valtrex] 500 mg tablet 500 mg PO QAM sertraline [Zoloft] 50 mg Tablet 50 mg PO QAM Discharge Orders: Discharge Order (Routine); Ordered 08/30/23 Ordered By: James Zee Admission Data Admit Date/Time: 08/29/23 10:45 Attending Provider: James Zee Admit Provider: James Zee Primary Care Provider: Ned Newman V. Other Providers: Jules Colon
[2023-08-30] MEDS: ROSUVASTATIN CALCIUM 5 MG TAB PO SCH (07:42)
[2023-08-30] MEDS: dexAMETHasone 4 MG TAB PO SCH (07:42)
[2023-08-30] MEDS: lamoTRIgine 100 MG TAB PO SCH (07:43)
[2023-08-30] MEDS: MULTIVITAMIN TAB PO SCH (07:43)
[2023-08-30] MEDS: METHYLPHENIDATE HCL 5 MG TABLET PO SCH (07:44)
[2023-08-30] MEDS: SERTRALINE HCL 50 MG TABLET PO SCH (07:46)
[2023-08-30] MEDS: valACYclovir HCL 500 MG TABLET PO SCH (07:46)
--- NOTE | 2023-08-30 08:33 | Hospitalist Progress Note ---
Date of Service August 30, 2023 Assessment & Plan (1) Status post left knee replacement: (2) Hypertension: (3) History of tachycardia: Plan Attending: Dr. Sheriff 1. Osteoarthritis: * Patient presented for elective total left knee arthroplasty. POD #1 * Estimated blood loss 30 cc * Pain generally controlled * Anticipate discharge home today per Dr. Zee's note * Discussed need for bowel regimen secondary to analgesia. Patient defers anything while inpatient. Advised her to use Senokot as well as MiraLAX with a goal of 1 bowel movement per day * Further management per orthopedics as an outpatient 2. Hypertension/tachycardia: * Longstanding history per patient * Patient was given valsartan 80 mg while in the hospital * Patient does not appear to be on any home antihypertensives. Was previously started on metoprolol for sinus tach and per outpatient notes, this was stopped as patient reported side effects with worsening depression. She was referred to cardiology and was seen by Dr. Sharpe. * Outpatient follow-up with cardiology and with primary care office 3. Anxiety: * Patient does follow with psychiatry. * Continue home medications * Outpatient management with psychiatry and primary care Thank you for including us in the care of this patient. The medicine team will sign off at this time. Feel free to reconsult as needed. Admission and Anticipated Discharge Date Admission Date: August 29, 2023 Subjective Attending: Dr. Sheriff Is a very pleasant 78-year-old female. She was admitted on 08/28/2023 total left knee arthroplasty. Postoperatively she was given aspirin for DVT prophylaxis. She was kept overnight for observation. Patient did have some tachycardia and a CTA of the chest was completed which showed no evidence of pulmonary embolism. No evidence of pulmonary disease. No pericardial effusion. Patient was prophylactically placed on supplemental oxygen. She is currently saturating 95% on room air. She denies any use of home oxygen. She has no shortness of breath, chest pain, tachycardia, tachyarrhythmia that she is aware of at this time. Electrolytes are balanced. No leukocytosis. Patient has no specific complaints. She did have trouble sleeping last night but attributes it to IV and noise from SCD machine. Eating well. No bowel movement since admission. Patient was offered bowel regimen but declined stating that she will monitor bowel regimen at home. Review of Systems 2 Review of Systems: A total of 10 systems was reviewed and is negative other than as listed in the HPI Physical Exam 2 Physical Exam: GENERAL : No acute distress EYES: No icterus, gaze conjugate NOSE: No evidence of epistaxis MOUTH: No lesions or candidiasis NECK: Supple LUNGS: CTA B/L, no wheezes, rales or rhonchi HEART: Regular, rate controlled ABDOMEN: Soft, NT, ND, BS Present EXTREMITIES: No LE edema, pedal pulses intact NEURO: A&OX3 Results & Data Results & Data Vital Signs (Past 12 Hours) Vital Signs Temp Pulse Resp BP Pulse Ox O2 Del Method 08/30/23 07:52 Room Air 08/30/23 07:09 36.7 C 95 H 18 157/88 H 95 Room Air 08/30/23 03:51 36.6 C 104 H 18 154/89 H 93 Room Air 08/29/23 22:52 36.7 C 99 H 18 114/66 93 Room Air 08/29/23 21:05 Room Air Laboratory Results Abnormal lab results 08/29/23 Range/Units 14:54 Neut # (Auto) 9.55 H (1.40-6.50) K/uL Lymph # (Auto) 0.46 L (1.20-3.40) K/uL [place] # (Auto) 0.03 L (0.11-0.59) K/uL Glucose 217 H (70-99(Fasting)) mg/dl 08/29/23 14:54 08/29/23 14:54 Diagnostic Findings Knee X-Ray 08/29/23 10:45 XR knee LT 1 or 2V routine HISTORY: 78 years-old Female Surgical Post Op left knee arthroplasty COMPARISON: 04/09/2023 TECHNIQUE: 3 views of the left knee FINDINGS: Total joint arthroplasty with patellar resurfacing. Anterior midline skin casandra are noted along with expected postoperative soft tissue swelling and deep tissue air. No acute fracture, or dislocation. 6 mm radiodensity projects lateral to the distal femur on the frontal projection, possibly a bone fragment versus cement material. IMPRESSION: Satisfactory alignment of the total joint arthroplasty. ACT 112: Negative or not required by law. The above report was generated using voice recognition software. It may contain grammatical, syntax or spelling errors. Electronically signed by: Nate Mackenzie M.D. 08/29/2023 11:44 AM Chest CTA 08/29/23 19:27 Exam(s): CTA CHEST IV Amt: OPTIRAY [id number] EXAM: CT Angiography Chest With Intravenous Contrast CLINICAL HISTORY: Reason for exam: PE. TECHNIQUE: Axial computed tomographic angiography images of the chest with intravenous contrast. CTDI is 23.09 mGy and DLP is 607.08 mGy-cm. Automated exposure control was utilized for the study. A dose lowering technique was utilized adhering to the principles of ALARA. MIP reconstructed images were created and reviewed. COMPARISON: No relevant prior studies available. FINDINGS: Pulmonary arteries: Unremarkable. No acute pulmonary embolism. Aorta: No acute findings. No thoracic aortic aneurysm. Lungs: Unremarkable. No mass. No consolidation. Pleural space: Unremarkable. No significant effusion. No pneumothorax. Heart: Cardiomegaly. No significant pericardial effusion. No evidence of RV dysfunction. Mediastinum: Small hiatal hernia. Bones/joints: No acute fracture. No dislocation. Soft tissues: Unremarkable. Lymph nodes: Unremarkable. No enlarged lymph nodes. IMPRESSION: No acute pulmonary embolism. Electronically signed by: Ty Jane MD 08/29/23 22:04 PM ECG Additional Comments: PG Care Time/CCT Total # of Minutes Spent Total Time Spent with Patient: Total time spent is greater than 50% in coordination of care (as documented) at patient's floor/unit and/or counseling patient: Coding Level of Care Code 38700 SUB INP/OBS CARE 07/31MIN Diagnoses Status post left knee replacement Z96.652 Hypertension I10 History of tachycardia Z87.898 Time Spent (min) 20
== END 2023-08-30 12:46 | disposition home or self-care (01) ==
LOC: 3E 07:33 → ASU 07:33